=== PATIENT | female | born 1995 | race Two or more races ===

== ENCOUNTER 2021-01-03 10:09 | Emergency (ER) | payer OTHER ==
[2021-01-03 10:43] VITALS: BP 108/68
--- NOTE | 2021-01-03 11:45 | ED Physician Documentation ---
History of Present Illness - Stated complaint Stated Complaint: CHEST PX/CONGESTION - Chief complaint Chief Complaint: Heent - History obtained from History obtained from: Patient - Additonal information Additional information: Healthy 25-year-old woman unimmunized against Covid has been sick for about 2 days with chills, body aches, runny nose. Mild sore throat. No measured fevers. Review of Systems Constitutional: reports: Chills, Myalgias, Fatigue. denies: Fever Nose: reports: Rhinorrhea / runny nose Respiratory: reports: Cough. denies: Dyspnea PD PAST MEDICAL HISTORY - Present Medications Home Medications: Ambulatory Orders Medication Instructions Recorded Confirmed No Known Home Medications 01/03/21 01/03/21 - Allergies Allergies/Adverse Reactions: Allergies Allergy/AdvReac Type Severity Reaction Status Date / Time No Known Drug Allergies Allergy Verified 01/03/21 10:43 PD ED PE NORMAL - Vitals Vital signs reviewed: Yes - General General: Alert and oriented X 3, No acute distress - HEENT HEENT: Ears normal, Pharynx benign - Neck Neck: Supple, no meningeal sign, No bony TTP - Cardiac Cardiac: RRR, No murmur - Respiratory Respiratory: No respiratory distress, Clear bilaterally - Abdomen Abdomen: Non tender - Back Back: No CVA TTP, No spinal TTP - Derm Derm: Normal color, Warm and dry - Neuro Neuro: Alert and oriented X 3, Normal speech Results - Vitals Vitals: Vital Signs - 24 hr 01/03/21 10:40 Temperature 36.0 C L Heart Rate 69 Respiratory 20 Rate Blood Pressure 108/68 O2 Saturation 100 Oxygen O2 Source Room air PD MEDICAL DECISION MAKING - ED course ED course: 25-year-old woman with viral syndrome. Yarbrough test ordered and advised to home quarantine until result is known and Negative. Departure - Departure Disposition: 01 Home, Self Care Clinical Impression: Viral syndrome Condition: Good Record reviewed to determine appropriate education?: Yes Instructions: ED Viral Syndrome Comments: You have a Covid test pending. You need to self quarantine until the result is done and negative. Do not leave your house. Do not get near anybody. The results should be done in 48 to 72 hours. We will call with a positive result, the fastest way to get a negative result for confirmation though is to go to the hospital website at [email or web address], click on the my [facility] tab and sign up for the patient portal. If any friends or family get sick and would like to have a Covid test done, but do not have signs or symptoms that would necessitate being hospitalized, we encourage testing through our coronavirus swabbing station, call [phone] to schedule an appointment. Forms: Activity restrictions
== END 2021-01-03 11:48 | disposition home or self-care (01) ==
LOC: ED 10:09
DX: B34.9 Viral infection, unspecified (principal); Z20.822 Contact with and (suspected) exposure to COVID-19
CPT/HCPCS: 99281; 99283

== ENCOUNTER 2021-05-20 09:44 | Outpatient (CLI) | payer OTHER | END 2021-05-20 09:45 | disposition critical access hospital (66) | LOC: EMS 09:44 | DX: M25.559 Pain in unspecified hip (principal); R55 Syncope and collapse | CPT/HCPCS: A0425; A0429 ==

== ENCOUNTER 2021-05-20 10:04 | Emergency (ER) | payer OTHER ==
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
[2021-05-20 10:54] LABS: BASOPHILS % (AUTO) 0.5 %; EOSINOPHILS # (AUTO) 0.1 10^3/uL (0.0-0.7); HCT - HEMATOCRIT 37.9 % (37.0-47.0); HGB - HEMOGLOBIN 12.4 g/dL (12.0-16.0); LYMPHOCYTES # (AUTO) 1.5 10^3/uL (1.5-3.5); LYMPHOCYTES % (AUTO) 24.6 %; MEAN CORPUSCULAR HGB CONC 32.7 g/dL (32.0-36.0); MEAN CORPUSCULAR VOLUME 88.6 fL (81.0-99.0); MONOCYTES # (AUTO) 0.6 10^3/uL (0.0-1.0); MONOCYTES % (AUTO) 8.9 %; NEUTROPHILS % (AUTO) 64.7 %; PLT - PLATELET COUNT 216 10^3/uL (130-450); RED BLOOD COUNT 4.28 10^6/uL (4.20-5.40); RED CELL DISTRIBUTION WIDTH 13.2 % (12.0-15.0); WHITE BLOOD COUNT 6.2 x10^3/uL (4.8-10.8)
[2021-05-20 11:12] LABS: ALBUMIN/GLOBULIN RATIO 1.4 (1.0-2.2); BILIRUBIN,TOTAL 0.6 mg/dL (0.2-1.0); CALCIUM 8.6 mg/dL (8.5-10.3); CREATININE 0.5 mg/dL (0.4-1.0); POTASSIUM 3.7 mmol/L (3.5-5.0); TOTAL PROTEIN 6.9 g/dL (6.7-8.2)
[2021-05-20] MEDS: HYDROmorphone 1 MG/ML CARPUJECT IVP STA (11:19)
[2021-05-20] MEDS: SODIUM CHLORIDE 0.9% 1,000 ML IV STA (11:55)
[2021-05-20] MEDS: HYDROmorphone 0.5 MG/0.5 ML SYRINGE IVP STA (12:02)
[2021-05-20] MEDS: KETOROLAC 30 MG/ML VIAL IVP STA (12:02)
[2021-05-20 12:09] LABS: BILIRUBIN,URINE NEGATIVE (NEGATIVE); GLUCOSE, URINE (UA) NEGATIVE (NEGATIVE); KETONES,URINE (UA) NEGATIVE (NEGATIVE); LEUKOCYTE ESTERASE, URINE NEGATIVE (NEGATIVE); NITRITE,URINE NEGATIVE (NEGATIVE); OCCULT BLOOD,URINE NEGATIVE (NEGATIVE); PH,URINE 6.5 PH (5.0-7.5); PROTEIN,URINE NEGATIVE (NEGATIVE); UROBILINOGEN,URINE 0.2 (NORMAL) E.U./dL (NORMAL)
[2021-05-20 12:12] LABS: CLARITY,URINE CLEAR (CLEAR); HCG UR QUAL NEGATIVE
[2021-05-20] MEDS: KETOROLAC 60 MG/2 ML VIAL IM STA (13:29)
[2021-05-20 13:36] VITALS: BP 110/80
[2021-05-20] MEDS: LIDOCAINE 1% 2 ML VIAL MC ONE (13:37)
[2021-05-20] MEDS: cefTRIAXone 250 MG VIAL IM STA (13:37)
[2021-05-20] MEDS: DOXYCYCLINE 100 MG TABLET PO STA (13:37)
[2021-05-20] MEDS: HYDROcod/ACETAM 5/325 MG TABLET PO STA (13:37)
[2021-05-20] MEDS: HYDROmorphone 1 MG/ML CARPUJECT IM STA (13:38)
[2021-05-20 21:00] LABS: CHLAMYDIA TRACHOMATIS DNA NEGATIVE (NEGATIVE); NEISSERIA GONORRHOEAE DNA NEGATIVE (NEGATIVE); TRICHOMONAS VAGINALIS DNA NEGATIVE (NEGATIVE)
== END 2021-05-20 13:46 | disposition home or self-care (01) ==
LOC: EDUNIT# → ED 10:04
DX: R10.2 Pelvic and perineal pain (principal); R55 Syncope and collapse
CPT/HCPCS: 36415; 80053; 81001; 81003; 81025; 83690; 85025; 87086; 87210; 87491; 87591; 87661; 93005; 99284

== ENCOUNTER 2021-07-24 11:34 | Emergency (ER) | payer OTHER ==
[2021-07-24 11:46] VITALS: BP 129/83
--- NOTE | 2021-07-24 11:54 | ED Physician Documentation ---
History of Present Illness - Stated complaint Stated Complaint: CONGESTIONS - Chief complaint Chief Complaint: Heent - History obtained from History obtained from: Patient - Additonal information Additional information: 26-year-old woman who is not vaccinated against Covid has been sick for about 4 days with loss of taste and smell, feeling hot and cold, muscle aches, nasal congestion and sore throat. No shortness of breath. Review of Systems Constitutional: reports: Chills, Myalgias Nose: reports: Rhinorrhea / runny nose Throat: reports: Sore throat Respiratory: denies: Dyspnea, Cough PD PAST MEDICAL HISTORY - Past Surgical History Past Surgical History: No - Present Medications Home Medications: Ambulatory Orders Medication Instructions Recorded Confirmed No Known Home Medications 07/24/21 07/24/21 - Allergies Allergies/Adverse Reactions: Allergies Allergy/AdvReac Type Severity Reaction Status Date / Time No Known Drug Allergies Allergy Verified 07/24/21 11:46 - Social History Does the pt smoke?: No Smoking Status: Never smoker Does the pt drink ETOH?: No Does the pt have substance abuse?: No - Immunizations Immunizations are current?: Yes - POLST Patient has POLST: No PD ED PE NORMAL - Vitals Vital signs reviewed: Yes - General General: Alert and oriented X 3, No acute distress - Respiratory Respiratory: No respiratory distress - Neuro Neuro: Alert and oriented X 3, Normal speech Results - Vitals Vitals: Vital Signs - 24 hr 07/24/21 11:43 Temperature 36.4 C L Heart Rate 86 Respiratory 16 Rate Blood Pressure 129/83 H O2 Saturation 100 Oxygen O2 Source Room air Departure - Departure Disposition: 01 Home, Self Care Clinical Impression: Viral URI Condition: Good Record reviewed to determine appropriate education?: Yes Instructions: ED Viral Syndrome Comments: You have a Covid test pending. You need to self quarantine until the result is done and negative. Do not leave your house. Do not get near anybody. The results should be done in 48 to 72 hours. We will call with a positive result, the fastest way to get a negative result for confirmation though is to go to the hospital website at [email or web address], click on the my [employer] tab and sign up for the patient portal. If any friends or family get sick and would like to have a Covid test done, but do not have signs or symptoms that would necessitate being hospitalized, there are multiple local options for Covid testing. [facility] keeps an updated list of testing and vaccination options at: [email or web address]. Forms: Activity restrictions
== END 2021-07-24 12:02 | disposition home or self-care (01) ==
LOC: ED 11:34
DX: U07.1 COVID-19 (principal); J06.9 Acute upper respiratory infection, unspecified
CPT/HCPCS: 99282; 99283

== ENCOUNTER 2023-10-29 10:37 | Outpatient (CLI) | payer OTHER | END 2023-10-29 10:38 | disposition critical access hospital (66) | LOC: EMS 10:37 | DX: R55 Syncope and collapse (principal); R51.9 Headache, unspecified; M54.2 Cervicalgia | CPT/HCPCS: A0425; A0427 ==

== ENCOUNTER 2023-10-29 10:57 | Emergency (ER) | payer OTHER ==
[2023-10-29 11:14] VITALS: O2SAT 100
--- NOTE | 2023-10-29 11:16 | ED Physician Documentation ---
History of Present Illness - Stated complaint Stated Complaint: SYNCOPE - Chief complaint Chief Complaint: Cardiac - Additonal information Additional information: 28-year-old female with history of syncopal episodes, recent miscarriage in Jun presents emergency department for syncopal episode. Patient says that she normally gets an aura before passing out she had this happen this morning and was able to get to her car before it happened she then went to coffee store and was feeling unwell again she tried to get to a place to be comfortable enough to pass out and unfortunately was unable to make it. Patient had syncopal episode the back of her head. She is now complaining of chronic abdominal pain but says it does not feel any different from when she had a miscarriage in June no nausea mild headache from hitting her head no chest pain or shortness of breath. PD PAST MEDICAL HISTORY - Past Medical History Cardiovascular: Other Other Past Medical History: POTS - Past Surgical History Past Surgical History: No - Present Medications Home Medications: Ambulatory Orders Medication Instructions Recorded Confirmed Quetiapine Fumarate [Seroquel] 400 mg PO HS 10/29/23 10/29/23 - Allergies Allergies/Adverse Reactions: Allergies Allergy/AdvReac Type Severity Reaction Status Date / Time No Known Drug Allergies Allergy Verified 10/29/23 11:13 - Social History Does the pt smoke?: No Smoking Status: Never smoker Does the pt drink ETOH?: No Does the pt have substance abuse?: No - Immunizations Immunizations are current?: Yes - POLST Patient has POLST: No PD ED PE NORMAL - Vitals Vital signs reviewed: Yes - General General: Alert and oriented X 3, No acute distress, Well developed/nourished - HEENT HEENT: Atraumatic, PERRL, EOMI, Moist mucous membranes - Neck Neck: Supple, no meningeal sign, No JVD, C-Spine cleared by NEXUS criteria - Cardiac Cardiac: RRR, No murmur, No gallop, Strong equal pulses - Respiratory Respiratory: No respiratory distress, Clear bilaterally - Abdomen Abdomen: Normal bowel sounds, Soft, No organomegaly. No: Non tender - Derm Derm: Normal color, Warm and dry, No rash - Extremities Extremities: No deformity, No edema - Neuro Neuro: Alert and oriented X 3, roller skate assembler 2-12 intact, No motor deficit, No sensory deficit, Normal speech Eye Opening: Spontaneous Motor: Obeys Commands Verbal: Oriented GCS Score: 15 - Psych Psych: Normal mood, Normal affect Results - Vitals Vitals: Vital Signs - 24 hr 10/29/23 10/29/23 10/29/23 11:06 12:09 14:13 Temperature 36.0 C L Heart Rate 77 84 Respiratory 13 16 16 Rate Blood Pressure 119/83 H 124/73 O2 Saturation 100 100 Oxygen O2 Source Room air - EKG (time done) 1119 EKG releavant findings:: EKG personally interpreted by author of this note. Relevant findings are: Rate: Rate (enter#) (83) Rhythm: NSR Central: Normal Intervals: Normal HI QRS: Normal Ischemia: Normal ST segments Computer interpretation: Agree with computer - Labs Labs: Laboratory Tests 10/29/23 10/29/23 10/29/23 12:26 12:26 12:26 WBC 13.8 H RBC 4.52 Hgb 12.6 Hct 39.5 MCV 87.4 MCH 27.9 MCHC 31.9 L RDW 13.7 Plt Count 250 MPV 10.0 Neut # (Auto) 11.7 H Lymph # (Auto) 1.0 L [place] # (Auto) 1.0 Eos # (Auto) 0.0 Baso # (Auto) 0.1 Absolute Nucleated RBC 0.00 Nucleated RBC % 0.0 Sodium 138 Potassium 4.2 Chloride 109 Carbon Dioxide 24 Anion Gap 5.0 L BUN 8 Creatinine 0.6 Estimated GFR (MDRD) 121 Glucose 91 Calcium 8.8 Magnesium 1.7 Total Bilirubin 0.3 AST 18 ALT 9 L Alkaline Phosphatase 61 Troponin I High Sens < 2.3 L Total Protein 7.1 Albumin 4.0 Globulin 3.1 Albumin/Globulin Ratio 1.3 Lipase 31 Urine Color Urine Clarity Urine pH Ur Specific [place] Urine Protein Urine Glucose (UA) Urine Ketones Urine Occult Blood Urine Nitrite Urine Bilirubin Urine Urobilinogen Ur Leukocyte Esterase Ur Microscopic Review Urine Culture Comments Urine HCG, Qual 10/29/23 13:00 WBC RBC Hgb Hct MCV MCH MCHC RDW Plt Count MPV Neut # (Auto) Lymph # (Auto) [place] # (Auto) Eos # (Auto) Baso # (Auto) Absolute Nucleated RBC Nucleated RBC % Sodium Potassium Chloride Carbon Dioxide Anion Gap BUN Creatinine Estimated GFR (MDRD) Glucose Calcium Magnesium Total Bilirubin AST ALT Alkaline Phosphatase Troponin I High Sens Total Protein Albumin Globulin Albumin/Globulin Ratio Lipase Urine Color YELLOW Urine Clarity CLEAR Urine pH 7.5 Ur Specific [place] 1.010 Urine Protein NEGATIVE Urine Glucose (UA) NEGATIVE Urine Ketones NEGATIVE Urine Occult Blood NEGATIVE Urine Nitrite NEGATIVE Urine Bilirubin NEGATIVE Urine Urobilinogen 0.2 (NORMAL) Ur Leukocyte Esterase NEGATIVE Ur Microscopic Review NOT INDICATED Urine Culture Comments NOT INDICATED Urine HCG, Qual NEGATIVE PD Medical Decision Making - ED course ED course: Given history, exam and workup, low suspicion for HF, ICH (no trauma, headache), seizure (no witnessed seizure like activity, no postictal period, tongue laceration, bladder incontinence), stroke (no focal neuro deficits), HOCM (no murmur, family history of sudden ), ACS (neg troponin, no anginal pain), aortic dissection (no chest pain), malignant arrhythmia on ekg or any family history of sudden , or GI bleed (stable hgb). Low suspicion for PE given normal vital signs, absence of chest pain or dyspnea, no evidence of DVT, no recent surgery/immobilization. Based on new [place] syncope rule, patient is low r isk and well appearing here, plan to discharge the patient home with PCP follow- up she also has no appointment with cardiology coming up in a couple weeks. She is been worked up for this multiple times all findings thus far have been negative. Patient received a total of 2 L of IV fluid she was feeling better and would like to do the nose feel eager to discharge. Patient would not like any further workup or evaluation would like to discharge at this point in time. Departure - Departure Disposition: 01 Home, Self Care Clinical Impression: Dehydration Syncope Qualifiers: Syncope type: vasovagal syncope Qualified Code(s): R55 - Syncope and collapse Instructions: ED Syncope Vasovagal, ED Fainting Unkn Cause Comments: Thank you for trusting us with your care, we have evaluated you for your syncope episode. As we discussed your labs look okay we have given you a total of 2 L here in the emergency department. I would recommend following up with your primary care provider letting them know about today's ER visit and make sure that you prioritize going to your cardiology appointment that is coming up soon. Please come back to the emergency department if this happens again, if you start to develop any chest pain, shortness of breath, or any other concerning symptoms. Keep a log of what you have been doing eating and drinking prior to your episodes of passing out to bring to your glass silverer. Wishing you a speedy recovery. Forms: PCP List Discharge Date/Time: 10/29/23 14:30
[2023-10-29 12:30] LABS: BASOPHILS # (AUTO) 0.1 10^3/uL (0.0-0.1); BASOPHILS % (AUTO) 0.4 %; EOSINOPHILS % (AUTO) 0.2 %; HCT - HEMATOCRIT 39.5 % (37.0-47.0); HGB - HEMOGLOBIN 12.6 g/dL (12.0-16.0); LYMPHOCYTES % (AUTO) 7.3 %; MEAN CORPUSCULAR HEMOGLOBIN 27.9 pg (27.0-31.0); MEAN CORPUSCULAR HGB CONC 31.9 g/dL (32.0-36.0); MEAN CORPUSCULAR VOLUME 87.4 fL (81.0-99.0); NEUTROPHILS # (AUTO) 11.7 10^3/uL (1.5-6.6); NEUTROPHILS % (AUTO) 84.7 %; PLT - PLATELET COUNT 250 10^3/uL (130-450); RED BLOOD COUNT 4.52 10^6/uL (4.20-5.40); RED CELL DISTRIBUTION WIDTH 13.7 % (12.0-15.0); WHITE BLOOD COUNT 13.8 x10^3/uL (4.8-10.8)
[2023-10-29 12:47] LABS: MAGNESIUM 1.7 mg/dL (1.7-2.3)
[2023-10-29 12:51] LABS: ALBUMIN/GLOBULIN RATIO 1.3 (1.0-2.2); BILIRUBIN,TOTAL 0.3 mg/dL (0.2-1.0); CALCIUM 8.8 mg/dL (8.5-10.3); CREATININE 0.6 mg/dL (0.6-1.3); POTASSIUM 4.2 mmol/L (3.5-4.5); TOTAL PROTEIN 7.1 g/dL (6.4-8.9)
[2023-10-29 13:08] LABS: BILIRUBIN,URINE NEGATIVE (NEGATIVE); GLUCOSE, URINE (UA) NEGATIVE (NEGATIVE); KETONES,URINE (UA) NEGATIVE (NEGATIVE); LEUKOCYTE ESTERASE, URINE NEGATIVE (NEGATIVE); NITRITE,URINE NEGATIVE (NEGATIVE); OCCULT BLOOD,URINE NEGATIVE (NEGATIVE); PH,URINE 7.5 PH (5.0-7.5); PROTEIN,URINE NEGATIVE (NEGATIVE); UROBILINOGEN,URINE 0.2 (NORMAL) E.U./dL (NORMAL)
[2023-10-29 13:12] LABS: CLARITY,URINE CLEAR (CLEAR); HCG UR QUAL NEGATIVE
[2023-10-29] MEDS: IBUPROFEN 600 MG TABLET PO STA (13:24)
[2023-10-29] MEDS: ACETAMINOPHEN 325 MG TABLET PO STA (13:24)
[2023-10-29] MEDS: SODIUM CHLORIDE 0.9% 1,000 ML IV ONE (13:24)
[2023-10-29 14:19] VITALS: BP 124/73
== END 2023-10-29 14:30 | disposition home or self-care (01) ==
LOC: EDUNIT# → ED 10:57
DX: R55 Syncope and collapse (principal); E86.0 Dehydration; G90.A Postural orthostatic tachycardia syndrome [POTS]; Z79.899 Other long term (current) drug therapy
CPT/HCPCS: 36415; 80053; 81003; 81025; 83690; 83735; 84484; 85025; 93005; 96360; 99283; 99284; A9270; 81001; 87086

== ENCOUNTER 2024-03-06 08:53 | Emergency (ER) | payer OTHER ==
[2024-03-06 09:12] VITALS: BP 129/76; O2SAT 98
--- NOTE | 2024-03-06 10:10 | ED Physician Documentation ---
PD HPI URI - Stated complaint Stated Complaint: N/V,FEVER,THROAT PX - Chief complaint Chief Complaint: General - History obtained from History obtained from: Patient PD PAST MEDICAL HISTORY - Past Medical History Past Medical History: Yes Cardiovascular: Other - Past Surgical History Past Surgical History: No - Present Medications Home Medications: Ambulatory Orders Medication Instructions Recorded Confirmed Quetiapine Fumarate [Seroquel] 400 mg PO HS 10/29/23 10/29/23 - Allergies Allergies/Adverse Reactions: Allergies Allergy/AdvReac Type Severity Reaction Status Date / Time No Known Drug Allergies Allergy Verified 03/06/24 09:06 - Social History Does the pt smoke?: No Smoking Status: Never smoker Does the pt drink ETOH?: No Does the pt have substance abuse?: No - Immunizations Immunizations are current?: Yes - POLST Patient has POLST: No Results - Vitals Vitals: Vital Signs - 24 hr 03/06/24 09:03 Temperature 37.1 C Heart Rate 95 Respiratory 20 Rate Blood Pressure 129/76 O2 Saturation 98 Oxygen O2 Source Room air Departure - Departure
[2024-03-06 10:40] LABS: B. PARAPERTUSSIS- RESP PCR PAN NOT DETECTED; B. PERTUSSIS- RESP PCR PANEL NOT DETECTED; C. PNEUMONIAE- RESP PCR PANEL NOT DETECTED; CORONAVIRUS 229E-RESP PCR NOT DETECTED; CORONAVIRUS HKU1-RESP PCR NOT DETECTED; CORONAVIRUS NL63-RESP PCR NOT DETECTED; CORONAVIRUS OC43-RESP PCR DETECTED; HUMAN METAPNEUMOVIRUS NOT DETECTED; INFLUENZA A- RESP PCR PANEL NOT DETECTED; INFLUENZA B - RESP PCR PANEL NOT DETECTED; M. PNEUMONIAE- RESP PCR PANEL NOT DETECTED; PARAINFLUENZA VIRUS 1 NOT DETECTED; PARAINFLUENZA VIRUS 2 NOT DETECTED; PARAINFLUENZA VIRUS 3 NOT DETECTED; PARAINFLUENZA VIRUS 4 NOT DETECTED; RHINOVIRUS/ENTEROVIRUS NOT DETECTED; RSV- RESP PCR PANEL NOT DETECTED; SARS-CoV-2 -RESP PCR PANEL NOT DETECTED
--- NOTE | 2024-03-07 21:03 | ED Physician Documentation ---
ED Addendum - Addendum Addendum: 03/07/24 21:01 patient left prior to being seen. Had gotten viral testing from waiting room by nursing triage, showing non-covid caronavirus. I did call her to tell results. and suggested return to ER if needing eval/medication/etc.
== END 2024-03-06 10:30 | disposition left against medical advice (07) ==
LOC: ED 08:53
DX: Z53.21 Procedure and treatment not carried out due to patient leaving prior to being seen by health care provider (principal)
CPT/HCPCS: 87633

== ENCOUNTER 2025-04-13 16:13 | Inpatient (IN) ==
[2025-04-13 16:44] LABS: HCT - HEMATOCRIT 28.8 % (37.0-47.0); HGB - HEMOGLOBIN 9.0 g/dL (12.0-16.0); MEAN PLATELET VOLUME 10.5 fL (7.9-10.8); NRBC ABSOLUTE COUNT (AUTO) 0.05 x10^3/uL; NUCLEATED RED BLOOD CELLS AUTO 0.5 /100WBC; PLT - PLATELET COUNT 249 10^3/uL (130-450); RED CELL DISTRIBUTION WIDTH 16.4 % (12.0-15.0)
[2025-04-13 17:05] LABS: ALT ALANINE AMINOTRANSFERASE 7.0 IU/L (10-60); AST ASPARTATE AMINOTRANSFERASE 15.0 IU/L (10-42); BUN - BLOOD UREA NITROGEN 5.0 mg/dL (6-20); CARBON DIOXIDE - CO2 22.0 mmol/L (21-32); CREATININE 0.5 mg/dL (0.6-1.3); GFR - MDRD 147.0 (>89)
[2025-04-13] MEDS ORDERED: OXYTOCIN/SODIUM CHLORIDE 500 ML IV PRN (19:14)
[2025-04-13] MEDS ORDERED: fentaNYL 100 MCG/2 ML VIAL IVP PRN (19:14)
[2025-04-13] MEDS ORDERED: CALCIUM CARBONATE CHEW 500 MG TABLET PO PRN (19:14)
[2025-04-13] MEDS ORDERED: METOCLOPRAMIDE 10 MG TABLET PO PRN (19:14)
[2025-04-13] MEDS ORDERED: hydrALAZINE INJ 20 MG/ML VIAL IVP PRN (19:14)
[2025-04-13] MEDS ORDERED: ACETAMINOPHEN 500 MG TABLET PO PRN (19:14)
[2025-04-13] MEDS ORDERED: TERBUTALINE 1 MG/ML VIAL SUBQ PRN (19:14)
[2025-04-13] MEDS ORDERED: METOCLOPRAMIDE 10 MG/2 ML VIAL IVP PRN (19:14)
[2025-04-13] MEDS ORDERED: SODIUM CHLORIDE FLUSH 0.9% 10 ML SYRINGE IVP PRN (19:14)
[2025-04-13] MEDS ORDERED: ONDANSETRON ODT 4 MG TABLET PO PRN (19:14)
[2025-04-13] MEDS ORDERED: LABETALOL 20 MG/4 ML SYRINGE IVP PRN ×3 (19:14)
[2025-04-13] MEDS ORDERED: METHYLERGONOVINE 0.2 MG/ML VIAL IM PRN (19:14)
[2025-04-13] MEDS ORDERED: OXYTOCIN 10 UNIT/ML VIAL IM PRN (19:14)
[2025-04-13] MEDS ORDERED: CARBOPROST TROMETHAMINE 250 MCG/ML VIAL IM PRN (19:14)
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
[2025-04-13] MEDS: SODIUM CHLORIDE FLUSH 0.9% 10 ML SYRINGE IVP SCH (20:10)
--- NOTE | 2025-04-14 14:25 | PHARMACY PROGRESS NOTE ---
Best Possible Medication History Admit Date and Time: 04/14/25 0822 Home Medications Medication Instructions Recorded Confirmed Type ferrous sulfate 325 mg (65 mg 325 mg PO DAILY 09/12/24 04/14/25 History iron) tablet,delayed release vits no.126-ferrous fum 1 tab PO DAILY 04/14/25 History 28 mg iron-folic acid 800 mcg tablet (Classic ) quetiapine 400 mg tablet (Seroquel) 200 mg PO HS 09/1204/14/25 History promethazine 25 mg tablet 25 mg PO Q6H PRN nausea and 10/14/24 04/14/25 Rx vomiting #20 tabs Processed by: Nursing (Medication reconciliation completed by Color BufferAlejandro. discussed with nursing staff) Medications reviewed in ED?: No Medication History completed: Yes Secondary Source(s): Physician records [facility] Statement: As the person ultimately responsible for medication therapy, providers are able to order a medication from an existing home medication list in [facility] via the "Reconcile Routine" prior to Confirmation of that medication by donor support technician. Such practice is discouraged except when the physician, in their clinical judgment, deems that a medical need exists for a medication without regard to previous use.
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
[2025-04-14] MEDS: LACTATED RINGERS 1,000 ML IV PRN (17:40)
--- NOTE | 2025-04-14 21:34 | PROVIDER PROGRESS NOTE ---
Progress Note Progress Note Progress Note: Patient still very comfortable. has now tolerated vaginal miso x2 50 mcg each. partner here and supportive of her. TERMITE CONTROL SERVICE REPRESENTATIVE did come and talk with her and a plan was made of them to meet her with shift change. we had a long conversation this am about how best to get her thru exams, labor, etc. She said she has a very high pain tolerance but does not like vaginal touching. She said that she woudl like to be told we are going to touch her but then to talk with her about anything else until exam is done. no play by play of what we are doing. Just talk about the weather (or whatever). Don't expect her to respond. And then give her a minute after to recompose. has worked so far very well. I did have her try putting on some Emla cream to the vaginal opening with the first exam. She did not feel like it helped much. baby cat 1 now but had about 1.5 hrs of FHR baseline up to 170. Still with moderate variability, acels and no decels. seemed like just a long acel. now back to 150 baseline. Cervix when I checked her and put in miso around 3 pm was closed, aobut 60% effaced and -2 or higher. pretty soft. mid. She was pretty uncomfortable but did well. BPs thru the day have been stable. rarely over 140/90 and just barely. pulse also stable. no POTS symptoms. Plan will be to start pitocin at 2 am. She does not want to try a cervical catheter, but is ready to start something different. She did presume that this induction would take a long time.
[2025-04-15] MEDS: OXYTOCIN/SODIUM CHLORIDE 500 ML IV SCH (02:29)
[2025-04-15] MEDS ORDERED: ROPIVACAINE 0.2% 200 MG/100 ML BAG EP ONE (19:26)
--- NOTE | 2025-04-15 19:38 | PROVIDER PROGRESS NOTE ---
Progress Note Progress Note Progress Note: seen around noon and again around 5. SROM 8 am. clear. neg gbs. bps good today. was very painful with pitocin at 5 this am and was unable to tolerate monitoring so RNs turned off pitocin per patient request. Off until noon. she showered, napped and agreed to restart. now at 8 and doing ok. At 5 pm I checked her and she was 3/90/-2 very soft. mid. baby's FHT has been good all day. no concerns. patient met with Diana from anesthesia. She has checked in with her a few times. Criss does not feel ready for epidural yet. Pitocin per protocol. epidural when requesting. No more turning it off unless baby requires it. good to deliver by morning.
[2025-04-15] MEDS ORDERED: NALBUPHINE 10 MG/ML AMP IVP PRN (20:29)
[2025-04-15] MEDS ORDERED: NALOXONE 0.4 MG/ML VIAL IVP PRN (20:29)
[2025-04-15] MEDS ORDERED: ONDANSETRON 4 MG/2 ML VIAL IVP PRN (20:29)
[2025-04-15] MEDS ORDERED: METOCLOPRAMIDE 10 MG/2 ML VIAL IVP PRN (20:29)
[2025-04-15] MEDS ORDERED: ePHEDrine 50 MG/ML VIAL IVP PRN (20:29)
--- NOTE | 2025-04-15 21:57 | PROVIDER PROGRESS NOTE ---
Progress Note Progress Note Progress Note: Patient is now comfortable with epidural. pitocin at 12. contractions about q4. FHT cat 1. catheter put in with alot of clear urine. still feels the tube but doing ok with it. cervix /-2 soft. bps stable. a/p making progress in her induction for preeclampsia. No severe features. will continue going up on pitocin.
[2025-04-16] MEDS ORDERED: fentaNYL 100 MCG/2 ML VIAL ONE ×3 (01:54→07:45)
[2025-04-16] MEDS ORDERED: LIDOCAINE-PF 2% 10 ML AMP SUBQ ONE (01:54)
[2025-04-16] MEDS ORDERED: ROPIVACAINE 0.2% 200 MG/100 ML BAG EP ONE ×2 (02:09→07:45)
[2025-04-16] MEDS: LACTATED RINGERS 500 ML IV ONE (04:52)
[2025-04-16] MEDS: ROPIVACAINE 0.2% 200 MG/100 ML BAG EP PRN (07:58)
[2025-04-16] MEDS: TRANEXAMIC ACID IN NACL 1,000 MG/100 ML BAG IV PRN (11:59)
[2025-04-16] MEDS ORDERED: SIMETHICONE CHEW 80 MG TABLET PO PRN (12:30)
[2025-04-16] MEDS ORDERED: WITCH HAZEL/GLYCERIN 1 PAD TOP PRN (12:30)
[2025-04-16] MEDS ORDERED: OXYTOCIN/SODIUM CHLORIDE 500 ML IV PRN (12:30)
[2025-04-16] MEDS ORDERED: NALOXONE 0.4 MG/ML VIAL IVP PRN (12:30)
[2025-04-16] MEDS ORDERED: IBUPROFEN 600 MG TABLET PO PRN (12:30)
[2025-04-16] MEDS ORDERED: HYDROCORTISONE 1% CREAM 28 GM TUBE TOP SCH (13:00)
--- NOTE | 2025-04-16 17:25 | DELIVERY NOTE ---
Delivery Note Labor Labor: positive Induced by oxytocin Infant Delivery Method Delivery Method: positive Spontaneous vaginal delivery Cervical Ripening Method Cervical Ripening Method: positive Misoprostil Presentation Presentation: positive Vertex Nuchal Cord Nuchal Cord: positive Present and Reduced Amniotic Fluid Description Amniotic Fluid Description: positive Clear Episiotomy Type Episiotomy Type: positive None Laceration Laceration: positive 2nd degree (midline, perineal, quite small, repaired with a few stitches of 3-0 Vicryl Rapide.) Delivery Outcome Delivery Date: 04/16/25 Delivery Time: 11:54 Delivery Outcome: positive Livebirth : positive Placed in direct skin contact with mother, Bulb syringe, Stimulated, Warmed and Canadian used [place] sex: positive Female Cord Cord: positive 3 vessels Placenta Placenta: positive Spontaneous Estimated Blood Loss Estimated Blood Loss (in cc): 250 Post Delivery Events Post Delivery Events: positive No post delivery events Delivery Comments (Free Text/Narrative) Delivery Comments (Free Text/Narrative): Patient came in for induction for preeclampsia without severe features at 38 weeks. Miso 25 mcg orally x 4 without much progress. Vaginally 50 mcg x 2 after long waits. with first one cervix closed but very soft. Then pitocin overnight to 8 mu. woke up very painful and a bit out of control. PItocin turned off for 5 hours while patient regrouped. 3 cm 90%. Received epidural last evening. Then 4 cm. Overnight she progressed well. PIt to 20 and at 6 am was a rim. At 10 sm still had an anterior lip. At 10:40 we started pushing anyway. Baby's had was very low, past the cervix. At first she was not making much progress. Baby felt OP and asynclitic to me. I tried to turn her. Then US and back was up. Got squat bar. Kept pushing and than started making great progress. Delivered in OA presentation after 74 min of pushing. 11:54. Pitocin bolus started. Cord clamps and cut at about 3 min. TXA in IV. Placenta 11:59. Small second degree lac repaired in 2 layers. Minimal bleeding only 250 EBL. Patient did great. Never dissociated. Partner Luke and his mom were very supportive of her Had only taken 100 mg instead of 200 mg of her Seroquel last night so that she would be present and not too sleepy for her experience. Worked perfectly. Baby Apgars 8/9. Weighed 6lb 6 oz. Nae Reese.
--- NOTE | 2025-04-16 20:56 | PROVIDER PROGRESS NOTE ---
Progress Note Progress Note Progress Note: Patient asked RN to call me to discuss her Seroquel dose. took 100 mg last night and RN says she still had to wake her up some. but mostly felt OK. Seems 200 mg will be too much with a baby. will prescribe 100 mg for tonight and will have Dr. Kaminski discuss further with her tomorrow. She should call her prescriber tomorrow to talk about adjusting dose.
[2025-04-16] MEDS ORDERED: DOCUSATE SODIUM 100 MG CAPSULE PO SCH (21:00)
--- NOTE | 2025-04-17 08:16 | PROVIDER PROGRESS NOTE ---
Current Medications Current Medications Current Medications: Current Medications Generic Name Dose Route Start Last Admin Trade Name Freq PRN Reason Stop Dose Admin Acetaminophen 1,000 mg 04/13/25 19:14 Acetaminophen 500 Mg Tablet PO Q8H PRN Mild Pain or Fever>38C(100.4F) Calcium Carbonate/Glycine 1,000 mg 04/13/25 19:14 Calcium Carbonate Chew 500 Mg Tablet PO Q6HR PRN Heartburn Diphenhydramine HCl 25 mg 04/16/25 12:30 Diphenhydramine 25 Mg Capsule PO Q6HR PRN Allergy Symptoms Docusate Sodium 100 mg 04/16/25 21:00 Docusate Sodium 100 Mg Capsule PO BID BERNADETTE Hydralazine HCl 5 - 10 mg 04/13/25 19:14 Hydralazine Inj 20 Mg/Ml Vial IVP Q20M PRN SBP> or= 160 OR DBP> or= 110 Protocol Hydrocortisone 1 applic 04/16/25 13:00 Hydrocortisone 1% Cream 28 Gm Tube TOP QID BERNADETTE Oxytocin/Sodium Chloride 500 mls @ 1 mls/hr 04/15/25 02:00 04/16/25 14:30 Pitocin/Sodium Chloride IV Infused TITR BERNADETTE Titration Protocol 1 MILLIUNIT/MIN Ibuprofen 600 mg 04/16/25 12:30 Ibuprofen 600 Mg Tablet PO Q6HR PRN Moderate Pain (Level 4-6) Labetalol HCl 20 - 80 mg 04/13/25 19:14 Labetalol 20 Mg/4 Ml Syringe IVP Q10M PRN SBP> or= 160 OR DBP> or= 110 Protocol Labetalol HCl 20 mg 04/13/25 19:14 Labetalol 20 Mg/4 Ml Syringe IVP .ONCE PRN SBP> or= 160 OR DBP> or= 110 Protocol Labetalol HCl 20 - 40 mg 04/13/25 19:14 Labetalol 20 Mg/4 Ml Syringe IVP Q10M PRN SBP> or= 160 OR DBP> or= 110 Protocol Nifedipine 10 - 20 mg 04/13/25 19:14 Nifedipine 10 Mg Capsule PO Q20M PRN SBP> or= 160 OR DBP> or= 110 Protocol Ondansetron HCl 4 mg 04/13/25 19:14 Ondansetron Odt 4 Mg Tablet PO Q4HR PRN Nausea / Vomiting Quetiapine Fumarate 100 mg 04/16/25 19:47 04/17/25 00:10 Quetiapine 100 Mg Tablet PO Not Given HS BERNADETTE Simethicone 80 mg 04/16/25 12:30 Simethicone Chew 80 Mg Tablet PO TID PRN Gas Sodium Chloride 10 ml 04/13/25 19:14 Sodium Chloride Flush 0.9% 10 Ml Syringe IVP PRN PRN NEEDED PER PROVIDER ORDERS [place]/Glycerin 1 pad 04/16/25 12:30 [place]/Glycerin 1 Pad TOP PRN PRN ITCHING Objective Vital Signs/Intake & Output Vital Signs: Vital Signs x48h Temp Pulse Resp BP Pulse Ox 04/17/25 00:43 36.6 C 84 16 127/84 99 Intake & Output: Intake & Output 04/14/25 04/15/25 04/16/25 04/17/25 23:59 23:59 23:59 23:59 Intake Total 500 / 500 898 / 898 860 / 860 750 / 750 Output Total 2450 / 2450 Balance 500 / 500 898 / 898 -1590 / -1590 750 / 750 Lab Results 04/13/25 16:41 04/13/25 16:41 Other Labs: Lab Results x24hrs 04/13/25 Range/Units 20:00 Crossmatch IS Only See Detail
[2025-04-17 09:24] LABS: HCT - HEMATOCRIT 31.2 % (37.0-47.0); HGB - HEMOGLOBIN 9.5 g/dL (12.0-16.0); MEAN PLATELET VOLUME 10.7 fL (7.9-10.8); PLT - PLATELET COUNT 184.0 10^3/uL (130-450); RED CELL DISTRIBUTION WIDTH 19.4 % (12.0-15.0)
[2025-04-17 09:41] LABS: ALT ALANINE AMINOTRANSFERASE 9.0 IU/L (10-60); AST ASPARTATE AMINOTRANSFERASE 20.0 IU/L (10-42); BUN - BLOOD UREA NITROGEN 6.0 mg/dL (6-20); CARBON DIOXIDE - CO2 27.0 mmol/L (21-32); CREATININE 0.4 mg/dL (0.6-1.3); GFR - MDRD 190.0 (>89)
[2025-04-17 11:30] VITALS: BP 129/88; TEMP 98.2; O2SAT 98
--- NOTE | 2025-04-17 21:08 | PROVIDER PROGRESS NOTE ---
Subjective Subjective Subjective: Subjective Patient reports she is doing well. Lochia appropriate. Denies heavy bleeding. Ambulating. Pelvic and abdominal pain well-controlled. Tolerating oral intake. Diet: Regular. Voiding without difficulty. Passing flatus. Denies BM. Patient is bonding with baby in room Breast feeding going well. Denies feeling lightheaded, dizzy or excessively fatigued. Objective General: Alert, oriented, no apparent distress. Cardiovascular: Regular rate. Regular rhythm. Lungs: No increased work of breathing. Abdomen: Uterus firm. Below umbilicus. No guarding or rebound. Extremities: No pain on palpation. No cords palpated. Distal pulses intact. Current Medications Current Medications Current Medications: Current Medications Generic Name Dose Route Start Last Admin Trade Name Freq PRN Reason Stop Dose Admin Acetaminophen 1,000 mg 04/13/25 19:14 Acetaminophen 500 Mg Tablet PO Q8H PRN Mild Pain or Fever>38C(100.4F) Calcium Carbonate/Glycine 1,000 mg 04/13/25 19:14 Calcium Carbonate Chew 500 Mg Tablet PO Q6HR PRN Heartburn Diphenhydramine HCl 25 mg 04/16/25 12:30 Diphenhydramine 25 Mg Capsule PO Q6HR PRN Allergy Symptoms Docusate Sodium 100 mg 04/16/25 21:00 Docusate Sodium 100 Mg Capsule PO BID [facility] Hydralazine HCl 5 - 10 mg 04/13/25 19:14 Hydralazine Inj 20 Mg/Ml Vial IVP Q20M PRN SBP> or= 160 OR DBP> or= 110 Protocol Hydrocortisone 1 applic 04/16/25 13:00 Hydrocortisone 1% Cream 28 Gm Tube TOP QID [facility] Oxytocin/Sodium Chloride 500 mls @ 1 mls/hr 04/15/25 02:00 04/16/25 14:30 Pitocin/Sodium Chloride IV Infused TITR BERNADETTE Titration Protocol 1 MILLIUNIT/MIN Ibuprofen 600 mg 04/16/25 12:30 Ibuprofen 600 Mg Tablet PO Q6HR PRN Moderate Pain (Level 4-6) Labetalol HCl 20 - 80 mg 04/13/25 19:14 Labetalol 20 Mg/4 Ml Syringe IVP Q10M PRN SBP> or= 160 OR DBP> or= 110 Protocol Labetalol HCl 20 mg 04/13/25 19:14 Labetalol 20 Mg/4 Ml Syringe IVP .ONCE PRN SBP> or= 160 OR DBP> or= 110 Protocol Labetalol HCl 20 - 40 mg 04/13/25 19:14 Labetalol 20 Mg/4 Ml Syringe IVP Q10M PRN SBP> or= 160 OR DBP> or= 110 Protocol Nifedipine 10 - 20 mg 04/13/25 19:14 Nifedipine 10 Mg Capsule PO Q20M PRN SBP> or= 160 OR DBP> or= 110 Protocol Ondansetron HCl 4 mg 04/13/25 19:14 Ondansetron Odt 4 Mg Tablet PO Q4HR PRN Nausea / Vomiting Quetiapine Fumarate 100 mg 04/16/25 19:47 04/17/25 00:10 Quetiapine 100 Mg Tablet PO Not Given HS BERNADETTE Simethicone 80 mg 04/16/25 12:30 Simethicone Chew 80 Mg Tablet PO TID PRN Gas Sodium Chloride 10 ml 04/13/25 19:14 Sodium Chloride Flush 0.9% 10 Ml Syringe IVP PRN PRN NEEDED PER PROVIDER ORDERS [place]/Glycerin 1 pad 04/16/25 12:30 [place]/Glycerin 1 Pad TOP PRN PRN ITCHING Objective Vital Signs/Intake & Output Intake & Output: Intake & Output 04/14/25 04/15/25 04/16/25 04/17/25 23:59 23:59 23:59 23:59 Intake Total 500 / 500 898 / 898 860 / 860 750 / 750 Output Total 2450 / 2450 Balance 500 / 500 898 / 898 -1590 / -1590 750 / 750 Lab Results 04/17/25 09:17 04/17/25 09:17 Other Labs: Lab Results x24hrs 04/17/25 04/13/25 Range/Units 09:17 20:00 WBC 17.1 H (4.8-10.8) x10^3/uL RBC 3.71 L (4.20-5.40) 10^6/uL Hgb 9.5 L (12.0-16.0) g/dL Hct 31.2 L (37.0-47.0) % MCV 84.1 (81.0-99.0) fL MCH 25.6 L (27.0-31.0) pg MCHC 30.4 L (32.0-36.0) g/dL RDW 19.4 H (12.0-15.0) % Plt Count 184 (130-450) 10^3/uL MPV 10.7 (7.9-10.8) fL Sodium 137 (135-145) mmol/L Potassium 4.1 (3.5-4.5) mmol/L Chloride 106 (101-111) mmol/L Carbon Dioxide 27 (21-32) mmol/L Anion Gap 4.0 L (6-13) BUN 6 (6-20) mg/dL Creatinine 0.4 L (0.6-1.3) mg/dL Estimated GFR (MDRD) 190 (>89) Glucose 78 (74-104) mg/dL Calcium 8.7 (8.5-10.3) mg/dL Total Bilirubin 0.4 (0.2-1.0) mg/dL AST 20 (10-42) IU/L ALT 9 L (10-60) IU/L Alkaline Phosphatase 142 H (42-121) IU/L Total Protein 5.6 L (6.4-8.9) g/dL Albumin 3.1 L (3.2-5.5) g/dL Globulin 2.5 (2.1-4.2) g/dL Albumin/Globulin Ratio 1.2 (1.0-2.2) Crossmatch IS Only See Detail Assessment/Plan Problem List (1) care and examination of lactating mother: Impression: Routine care. Anticipate discharge tomorrow. (2) Preeclampsia: Impression: No signs or symptoms of worsening disease. Will continue to monitor and educated patient on warning signs Qualifiers: Trimester: third trimester Qualified Code(s): O14.93 - Unspecified pre- eclampsia, third trimester (3) Delivery outcome of liveborn : Qualifiers: Number of infants delivered: single infant Qualified Code(s): Z37.0 - Single live
--- NOTE | 2025-04-17 23:34 | Discharge Summary ---
Discharge Summary Admit Date: 04/16/25 Discharge Date: 04/17/25 Discharging Provider: Quoc Kaminski MD Code Status: Attempt Resuscitation DIAGNOSES Admission Diagnoses: 39 weeks gestation preeclampsia without severe features Discharge Diagnoses with Status of Each Condition: Same Status post spontaneous vaginal delivery Delivery of live wang at the [facility] History of Present Illness: Patient is a 30-year-old G3, P1 status post Esparza vaginal delivery now day 1. She initially desired to stay overnight, but decided she was ready to leave and left the unit for discharge. We initially offered her discharge earlier as she was ready to go and would return to room and with baby, but she later declined this in favor of staying. I am not sure what changed suddenly, but she desired to be discharged. Objective No change exam per progress note earlier today. HOSPITAL COURSE Hospital Course: Patient is a 30-year-old G3 now P1 status post spontaneous vaginal delivery at 39 weeks gestation. She had a long induction, but underwent an uncomplicated vaginal delivery. She was discharged on day 1, but stayed admitted. ALLERGIES Allergies Allergy/AdvReac Type Severity Reaction Status Date / Time No Known Drug Allergies Allergy Verified 04/03/25 14:20 MEDICATIONS Ambulatory Orders Medication Instructions Recorded Confirmed ferrous sulfate 325 mg (65 mg 325 mg PO DAILY 09/12/24 04/14/25 iron) tablet,delayed release vits no.126-ferrous fum 1 tab PO DAILY 04/14/25 28 mg iron-folic acid 800 mcg tablet (Classic ) quetiapine 400 mg tablet (Seroquel) 200 mg PO HS 09/1204/14/25 promethazine 25 mg tablet 25 mg PO Q6H PRN nausea and 10/14/24 04/14/25 vomiting #20 tabs LABS 04/17/25 09:17 04/17/25 09:17 FOLLOW UP Follow Up: With Filemon Samuel's care in 1 week TIME SPENT Time Spent in Discharge (Minutes): 20 Discharge Plan Discharge Patient Disposition: 01 Home, Self Care Condition: Stable Prescriptions: Continued quetiapine [Seroquel] 400 mg tablet 200 mg PO HS Classic 28 mg iron- 800 mcg tablet 1 tab PO DAILY ferrous sulfate 325 mg (65 mg iron) tablet,delayed release (DR/EC) 325 mg PO DAILY promethazine 25 mg tablet 25 mg PO Q6H PRN (Reason: nausea and vomiting) Qty: 20 1RF Activity Restrictions: Additional Comments Diet: Regular Print Language: Guinean Patient Instructions: After a Vaginal , Understanding Preeclampsia
--- NOTE | 2025-04-18 00:18 | Labor Flowsheet ---
Labor Flowsheet Datetime Report Generated by CPN: 04/18/2025 00:18 Datetime: 04/17/2025 10:22 VITAL SIGNS NBP Sys/Kennedi/Mean (mmHg): 129 : 88 : 98 Pulse: 82 Datetime: 04/16/2025 13:59 Stage of : Recovery Respirations: 16 Temperature (C): 36.9 Temperature Route: Oral PAIN Pain Scale: 0 Pain Presence: None/Denies Datetime: 04/16/2025 11:54 Comments: FHT 100s while pushing delivered at 1154 Datetime: 04/16/2025 11:45 UTERINE ACTIVITY Monitor Mode: External Frequency (min): 2-3 Quality: Moderate Duration (sec): 50-70 Pattern: Normal: <= 5 Contractions in 10 Minutes Resting Tone (Palpate): Relaxed ASSESSMENT A Monitor Mode: External US FHR Baseline Rate : 155 Variability: Minimal - Undetectable to <=5 bpm Accelerations: None Decelerations: Late Category: Category II Comfort Measures: Coaching Patient Care Comments: vomit Datetime: 04/16/2025 11:34 LaborFlag: Labor Datetime: 04/16/2025 11:30 Oxygen Method: Room Air Datetime: 04/16/2025 11:00 Pushing Progress: Descent with Pushing Stage 2 Comments: using push bar Datetime: 04/16/2025 10:40 VAGINAL EXAM Dilatation (cm): 10.0 STAGE 2 Pushing: Coached on Pushing Pushing Position: Pushing with Contractions Datetime: 04/16/2025 10:30 Monitor Interventions for UA: [place] Adjusted Datetime: 04/16/2025 10:00 Contraction Comments: unable to assess Datetime: 04/16/2025 09:45 Monitor Interventions for FHR: Ultrasound Adjusted Datetime: 04/16/2025 09:30 FHR Baseline Changes: No Baseline Change Pain Coping: Breathing Through Contractions Effacement (%): 100 Station: 2 Exam by: mann Datetime: 04/16/2025 09:19 Patient Position/Activity: Right Extreme Datetime: 04/16/2025 09:16 COMMUNICATION Communication: Provider at Bedside Communication Comments: dr mann at bedside Datetime: 04/16/2025 06:47 Vaginal Bleeding: Normal Show Datetime: 04/15/2025 23:30 Pitocin Checklist: At Least 1 Acceleration of 15 bpm x 15 Seconds in 30 Minutes or Adequate Variability; No More than 1 Late Deceleration Occurred in Past 30 Minutes; No More than 2 Variable Decelerations > 60 Seconds in Duration and decreasing >60 bpm in 30 minutes; No More than 5 Uterine Contractions in 10 Minutes for any 20 Minute Interval; Uterus Palpates Soft between Contractions Datetime: 04/15/2025 21:24 I/O Interventions: Becerra Cath Inserted Datetime: 04/15/2025 20:25 SpO2 (%): 100 Datetime: 04/15/2025 19:50 Epidural Procedure: Test Dose Datetime: 04/15/2025 19:36 Anesthesia Comments: prep started Datetime: 04/15/2025 19:34 PROCEDURE TIME OUT Procedure Verify: Correct Patient Identity; Correct Side and Site are Marked; Accurate Procedure Consent Form; Agreement on Procedure to be Done; Correct Patient Position; Addressed Need to Administer Antibiotics or Fluids for Irrigation; Safety Precautions Based on Patient History or Medication Use ANESTHESIA Epidural Positioning: Sitting Datetime: 04/15/2025 19:19 Provider 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 Notification Reason: Status Update; Labor Status; Pain; Patient Request Datetime: 04/15/2025 17:38 MEDICATIONS Pitocin (milliunits): Increased to @ 7 Datetime: 04/15/2025 17:00 Cervix, Consistency: Soft Datetime: 04/15/2025 15:53 Pain Type: Contraction Pain Location: Abdomen; Back Datetime: 04/15/2025 14:00 Pain Relief Measures: Comfort Measures Datetime: 04/15/2025 13:30 MATERNAL ASSESSMENT Level of Consciousness: Alert DTR's/Clonus: DTRs 1+ Headache: Localized Datetime: 04/15/2025 10:02 Breath Sounds, Left: Clear and Equal Breath Sounds, Right: Clear and Equal Nausea/Vomiting: Denies RUQ Epigastric Pain: Denies Datetime: 04/15/2025 08:55 Membrane Status: Ruptured Membranes Rupture Method: Spontaneous Amniotic Fluid Color: Clear Amniotic Fluid Amount: Small Nitrazine: Positive Datetime: 04/15/2025 08:01 TEACHING Instructional Method: Demo Datetime: 04/15/2025 07:56 Medication Comments: Pit discontinued due patient declining FHR monitor adjustment Plan of Care: Plan of Care Discussed; Induction Teaching Comments: Education provided to patient about the induction and the importance of monitoring FHR and contractions while receiving medication and care Datetime: 04/15/2025 05:00 Strip Reviewed by: mk Datetime: 04/14/2025 20:25 Cervical Ripening Agents: Cytotec @ 50 Datetime: 04/14/2025 17:42 PATIENT CARE IV/Blood Work: IV Bolus Started Datetime: 04/14/2025 17:13 Pain Assessment Comments: would like to use jacuzzi, education given current FHR and would like to go back down prior, pt agrees Datetime: 04/14/2025 00:18 Vital Sign Comments: pt in and out of sleep at this time.
== END 2025-04-17 22:30 | disposition home or self-care (01) | DRG 806 ==
LOC: WFO 16:13 → FBP 16:13
PROVIDERS: ADMIT Obstetrics & Gynecology; ATTEND Obstetrics & Gynecology
DX: Z91.410 Personal history of adult physical and sexual abuse; G90.A Postural orthostatic tachycardia syndrome [POTS]; F60.9 Personality disorder, unspecified; O70.1 Second degree perineal laceration during delivery; O14.04 Mild to moderate pre-eclampsia, complicating childbirth; O99.344 Other mental disorders complicating childbirth; Z37.0 Single live birth; F32.A Depression, unspecified; Z3A.38 38 weeks gestation of pregnancy; O99.02 Anemia complicating childbirth; O99.354 Diseases of the nervous system complicating childbirth; O69.81X0 Labor and delivery complicated by cord around neck, without compression, not applicable or unspecified

== ENCOUNTER 2025-04-20 12:57 | Observation (INO) ==
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
[2025-04-20 13:42] LABS: HCT - HEMATOCRIT 38.6 % (37.0-47.0); HGB - HEMOGLOBIN 11.5 g/dL (12.0-16.0); MEAN PLATELET VOLUME 10.1 fL (7.9-10.8); NRBC ABSOLUTE COUNT (AUTO) 0.00 x10^3/uL; NUCLEATED RED BLOOD CELLS AUTO 0.0 /100WBC; PLT - PLATELET COUNT 291 10^3/uL (130-450); RED CELL DISTRIBUTION WIDTH 19.9 % (12.0-15.0)
[2025-04-20 14:13] LABS: ALT ALANINE AMINOTRANSFERASE 15.0 IU/L (10-60); AST ASPARTATE AMINOTRANSFERASE 17.0 IU/L (10-42); BUN - BLOOD UREA NITROGEN 11.0 mg/dL (6-20); CARBON DIOXIDE - CO2 25.0 mmol/L (21-32); CREATININE 0.5 mg/dL (0.6-1.3); GFR - MDRD 147.0 (>89)
--- NOTE | 2025-04-20 14:15 | XRAY Report ---
PROCEDURE: XR Chest 1V INDICATIONS: chest pain TECHNIQUE: One view of the chest was acquired. COMPARISON: None. FINDINGS: Surgical changes and devices: None. Lungs and pleura: No pleural effusions or pneumothorax. No consolidation. Mediastinum: Mediastinal contours appear normal. Heart size is normal. Bones and chest wall: No suspicious bony lesions. Overlying soft tissues appear unremarkable. IMPRESSION: No acute cardiopulmonary process. Reviewed by: Daniel Hidalgo MD on 04/20/2025 2:12 PM PDT Approved by: Daniel Hidalgo MD on 04/20/2025 2:12 PM PDT Station ID: [id number]
[2025-04-20] MEDS: LACTATED RINGERS 1,000 ML IV STA (14:33)
[2025-04-20 15:36] LABS: GLUCOSE, URINE (UA) NEGATIVE (NEGATIVE); KETONES,URINE (UA) NEGATIVE (NEGATIVE); OCCULT BLOOD,URINE LARGE (NEGATIVE)
[2025-04-20 15:37] LABS: SQUAMOUS EPITHELIAL CELL,UR RARE Squamous (<= Few)
--- NOTE | 2025-04-20 16:43 | Ultrasound Report ---
PROCEDURE: US Pelvic Limited INDICATIONS: r/o retained matter from recent vaginal delivery TECHNIQUE: Real-time transabdominal scanning was performed of the pelvic organs, with image documentation. COMPARISON: None. FINDINGS: Uterus: Uterus is anteverted and enlarged in size at 17.2 x 5.8 x 11.5 cm. The myometrium is heterogeneous. The endometrium measures 2 mm in combined thickness. Other: No free pelvic fluid. Ovaries are normal in size, without complex cystic mass. IMPRESSION: Enlarged, heterogeneous uterus, consistent with post gravid status. The endometrium measures 2 mm in thickness. Reviewed by: Bora Alonso MD on 04/20/2025 4:39 PM PDT Approved by: Bora Alonso MD on 04/20/2025 4:39 PM PDT Station ID: [id number]
[2025-04-20] MEDS ORDERED: SODIUM CHLORIDE FLUSH 0.9% 10 ML SYRINGE IVP SCH (17:36)
[2025-04-20] MEDS: IBUPROFEN 600 MG TABLET PO SCH (18:19)
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
[2025-04-21] MEDS: SODIUM CHLORIDE FLUSH 0.9% 10 ML SYRINGE IVP PRN (02:42)
[2025-04-21] MEDS: FERROUS SULFATE 325 MG TABLET PO SCH (08:56)
[2025-04-21 08:59] LABS: HCT - HEMATOCRIT 36.4 % (37.0-47.0); HGB - HEMOGLOBIN 11.1 g/dL (12.0-16.0); MEAN PLATELET VOLUME 10.3 fL (7.9-10.8); PLT - PLATELET COUNT 282.0 10^3/uL (130-450); RED CELL DISTRIBUTION WIDTH 19.8 % (12.0-15.0)
[2025-04-21] MEDS ORDERED: [UNRECOGNIZED DRUG - REMARK] PO SCH (09:00)
[2025-04-21 09:14] LABS: ALT ALANINE AMINOTRANSFERASE 13.0 IU/L (10-60); AST ASPARTATE AMINOTRANSFERASE 13.0 IU/L (10-42); BUN - BLOOD UREA NITROGEN 13.0 mg/dL (6-20); CARBON DIOXIDE - CO2 23.0 mmol/L (21-32); CREATININE 0.4 mg/dL (0.6-1.3); GFR - MDRD 190.0 (>89)
--- NOTE | 2025-04-21 10:01 | PHARMACY PROGRESS NOTE ---
Best Possible Medication History Admit Date and Time: 04/20/25 [id number] Home Medications Medication Instructions Recorded Confirmed Type ferrous sulfate 325 mg (65 mg 325 mg PO DAILY 09/12/24 04/21/25 History iron) tablet,delayed release vits no.126-ferrous fum 1 tab PO DAILY 04/21/25 History 28 mg iron-folic acid 800 mcg tablet (Classic ) quetiapine 400 mg tablet (Seroquel) 200 mg PO HS 09/1204/21/25 History promethazine 25 mg tablet 25 mg PO Q6H PRN nausea and 10/14/24 04/21/25 Rx vomiting #20 tabs Processed by: Pharmacy Medications reviewed in ED?: No Medication History completed: Yes Secondary Source(s): Physician records and Previous admit records [facility] Statement: As the person ultimately responsible for medication therapy, providers are able to order a medication from an existing home medication list in [facility] via the "Reconcile Routine" prior to Confirmation of that medication by help desk support. Such practice is discouraged except when the physician, in their clinical judgment, deems that a medical need exists for a medication without regard to previous use.
--- NOTE | 2025-04-21 13:43 | Ultrasound Report ---
PROCEDURE: US Pelvic Complete INDICATIONS: abnormal bleeding TECHNIQUE: Real-time transabdominal scanning was performed of the pelvic organs, with image documentation. COMPARISON: 04/20/2025 FINDINGS: Uterus: Uterus is anteverted and enlarged in size at 16.6 x 7.9 x 9.5 cm. The myometrium is heterogeneous. The endometrium measures 9 mm in combined thickness. Ovaries: The right ovary measures 2.6 x 1.9 x 2.3 cm, with a calculated ovarian volume of 6.0 cc. The right ovary is normal in appearance. The left ovary is not seen. Other: No free pelvic fluid. IMPRESSION: Enlarged heterogeneous uterus consistent with post gravid state. Endometrium is normal in thickness measuring 9 mm without vascularity. Reviewed by: Jb Moss MD on 04/21/2025 1:40 PM PDT Approved by: Jb Moss MD on 04/21/2025 1:40 PM PDT Station ID: [id number]
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
[2025-04-21 14:40] VITALS: BP 134/85; TEMP 98.6; O2SAT 97
--- NOTE | 2025-04-21 15:30 | Labor Flowsheet ---
Labor Flowsheet Datetime Report Generated by CPN: 04/21/2025 15:30 Datetime: 04/17/2025 10:22 VITAL SIGNS NBP Sys/Kennedi/Mean (mmHg): 129 : 88 : 98 Pulse: 82 Datetime: 04/16/2025 13:59 Stage of : Recovery Respirations: 16 Temperature (C): 36.9 Temperature Route: Oral PAIN Pain Scale: 0 Pain Presence: None/Denies Datetime: 04/16/2025 11:54 Comments: FHT 100s while pushing delivered at 1154 Datetime: 04/16/2025 11:45 UTERINE ACTIVITY Monitor Mode: External Frequency (min): 2-3 Quality: Moderate Duration (sec): 50-70 Pattern: Normal: <= 5 Contractions in 10 Minutes Resting Tone (Palpate): Relaxed ASSESSMENT A Monitor Mode: External US FHR Baseline Rate : 155 Variability: Minimal - Undetectable to <=5 bpm Accelerations: None Decelerations: Late Category: Category II Comfort Measures: Coaching Patient Care Comments: vomit Datetime: 04/16/2025 11:34 LaborFlag: Labor Datetime: 04/16/2025 11:30 Oxygen Method: Room Air Datetime: 04/16/2025 11:00 Pushing Progress: Descent with Pushing Stage 2 Comments: using push bar Datetime: 04/16/2025 10:40 VAGINAL EXAM Dilatation (cm): 10.0 STAGE 2 Pushing: Coached on Pushing Pushing Position: Pushing with Contractions Datetime: 04/16/2025 10:30 Monitor Interventions for UA: [place] Adjusted Datetime: 04/16/2025 10:00 Contraction Comments: unable to assess Datetime: 04/16/2025 09:45 Monitor Interventions for FHR: Ultrasound Adjusted Datetime: 04/16/2025 09:30 FHR Baseline Changes: No Baseline Change Pain Coping: Breathing Through Contractions Effacement (%): 100 Station: 2 Exam by: mann Datetime: 04/16/2025 09:19 Patient Position/Activity: Right Extreme Datetime: 04/16/2025 09:16 COMMUNICATION Communication: Provider at Bedside Communication Comments: dr mann at bedside Datetime: 04/16/2025 06:47 Vaginal Bleeding: Normal Show Datetime: 04/15/2025 23:30 Pitocin Checklist: At Least 1 Acceleration of 15 bpm x 15 Seconds in 30 Minutes or Adequate Variability; No More than 1 Late Deceleration Occurred in Past 30 Minutes; No More than 2 Variable Decelerations > 60 Seconds in Duration and decreasing >60 bpm in 30 minutes; No More than 5 Uterine Contractions in 10 Minutes for any 20 Minute Interval; Uterus Palpates Soft between Contractions Datetime: 04/15/2025 21:24 I/O Interventions: Becerra Cath Inserted Datetime: 04/15/2025 20:25 SpO2 (%): 100 Datetime: 04/15/2025 19:50 Epidural Procedure: Test Dose Datetime: 04/15/2025 19:36 Anesthesia Comments: prep started Datetime: 04/15/2025 19:34 PROCEDURE TIME OUT Procedure Verify: Correct Patient Identity; Correct Side and Site are Marked; Accurate Procedure Consent Form; Agreement on Procedure to be Done; Correct Patient Position; Addressed Need to Administer Antibiotics or Fluids for Irrigation; Safety Precautions Based on Patient History or Medication Use ANESTHESIA Epidural Positioning: Sitting Datetime: 04/15/2025 19:19 Provider Notified (Name): CONTINUOUS IMPROVEMENT SPECIALIST Aube Notification Reason: Status Update; Labor Status; Pain; Patient Request Datetime: 04/15/2025 17:38 MEDICATIONS Pitocin (milliunits): Increased to @ 7 Datetime: 04/15/2025 17:00 Cervix, Consistency: Soft Datetime: 04/15/2025 15:53 Pain Type: Contraction Pain Location: Abdomen; Back Datetime: 04/15/2025 14:00 Pain Relief Measures: Comfort Measures Datetime: 04/15/2025 13:30 MATERNAL ASSESSMENT Level of Consciousness: Alert DTR's/Clonus: DTRs 1+ Headache: Localized Datetime: 04/15/2025 10:02 Breath Sounds, Left: Clear and Equal Breath Sounds, Right: Clear and Equal Nausea/Vomiting: Denies RUQ Epigastric Pain: Denies Datetime: 04/15/2025 08:55 Membrane Status: Ruptured Membranes Rupture Method: Spontaneous Amniotic Fluid Color: Clear Amniotic Fluid Amount: Small Nitrazine: Positive Datetime: 04/15/2025 08:01 TEACHING Instructional Method: Demo Datetime: 04/15/2025 07:56 Medication Comments: Pit discontinued due patient declining FHR monitor adjustment Plan of Care: Plan of Care Discussed; Induction Teaching Comments: Education provided to patient about the induction and the importance of monitoring FHR and contractions while receiving medication and care Datetime: 04/15/2025 05:00 Strip Reviewed by: mk Datetime: 04/14/2025 20:25 Cervical Ripening Agents: Cytotec @ 50 Datetime: 04/14/2025 17:42 PATIENT CARE IV/Blood Work: IV Bolus Started Datetime: 04/14/2025 17:13 Pain Assessment Comments: would like to use jacuzzi, education given current FHR and would like to go back down prior, pt agrees Datetime: 04/14/2025 00:18 Vital Sign Comments: pt in and out of sleep at this time.
== END 2025-04-21 14:50 | disposition home or self-care (01) ==
LOC: ED 12:57 → FBP 12:57
PROVIDERS: ADMIT Obstetrics & Gynecology; ATTEND Obstetrics & Gynecology